=== PATIENT | male | born 1985 | race Caucasian/White ===

== ENCOUNTER 2016-12-12 21:40 | Observation (INO) | payer OTHER ==
[~2016-12-12] VITALS: Ht 182.9 cm; Wt 108.9 kg
--- NOTE | ~2016-12-12 | CR63 ---
[facility] A Service of [facility] RADIOLOGY TEXT RESULTS PATIENT: TAYLOR HAY LOCATION: C2A 240-01 : 83 UNIT #: [id number] AGE: [address]: Prince Linn MD SEX: M ORDER DR: [id number] [facility] [address] [place], [place] [address] [id number] MR#: [id number] Acc #: [id number] NAME: TAYLOR HAY : 1985 SEX: M STUDY DATE/TIME: 12/12/2016 22:41 UNIT: C2A ROOM: 240 STUDY DESCRIPTION: CR Chest 2 View Attending Physician: Prince Linn M.D. Ordering Physician: Sivakumar Stack M.D. Primary Care Physician: Primary Care Physician No MEDICAL IMAGING REPORT This report is preliminary unless electronic signature is present EXAM Two-view chest INDICATION Chest pain today. PROCEDURE Frontal and lateral views of the chest. COMPARISON 11/30/2010. FINDINGS Mild enlargement of the cardiac size is similar to the prior. No dense consolidation, pleural fluid or pneumothorax. IMPRESSION 1. No active process. 2. Stable mild cardiac enlargement. Dictated by... Alex Sibley M.D. THIS IS AN ELECTRONICALLY VERIFIED REPORT Alex Sibley M.D. at 12/17/2016 8:32 AM JADON/judd TD: 12/13/2016 06:10 JOB #: [id number] MEDICAL IMAGING REPORT Page 1 of 1 COPY
--- NOTE | ~2016-12-12 | HP ---
Unit #: [id number] #: [id number] Patient: TAYLOR HAY [id number] [address] [address] [id number] I MR#: [id number] NAME: TAYLOR HAY ROOM: 240 Age: 31 Sex: M Admission Date: 12/12/2016 : 1985 Attending Physician: Prince Linn M.D. Primary Care Physician: No Primary Care Physician HISTORY AND PHYSICAL REASON FOR ADMISSION Acute dysphagia. HISTORY OF PRESENT ILLNESS 31-year-old gentleman with history of esophageal stricture, now presents with acute worsening. He had some cheese steak yesterday and is unable to drink or eat anything since then. No chest pain, no abdominal pain, no fever, no chills. PAST HISTORY History of esophageal stricture. Has not followed through, not taking any medications. MEDICATIONS Medications at home include: Ultram and Flexeril. No active medicines. ALLERGIES None. SOCIAL HISTORY Nonsmoker, nonalcoholic. REVIEW OF SYSTEMS A complete ten point review of systems was done which was unremarkable other than as mentioned above. PHYSICAL EXAMINATION VITAL SIGN: Stable. Temperature 98.2, pulse 85, respirations 14, blood pressure 144/92. HEENT: Pupils equal, reactive. Sclerae anicteric. Oral mucosa moist. NECK: No JVD, no lymphadenopathy. CHEST: Clear to auscultation bilaterally. ABDOMEN: Soft, nontender, nondistended. EXTREMITIES: Without clubbing, cyanosis or edema. NEUROLOGICAL: Intact. SKIN: Warm and dry. DIAGNOSTIC STUDIES LABORATORY: Labs unremarkable. ASSESSMENT AND PLAN Patient with acute on chronic dysphagia, possible meat impaction with steak. Will need an urgent upper endoscopy. Risks and benefits were discussed. The procedure will be carried out soon. Will keep him on IV Unit #: [id number] #: [id number] Patient: TAYLOR HAY fluids as well as PPIs for now. He will be discharged after the procedure. Dictated by Karmen Anderson/ernst TD: 12/13/2016 08:12 JOB #: [id number] HISTORY AND PHYSICAL Page 1 of 1 X Prince Linn MD HISTORY AND PHYSICAL
--- NOTE | ~2016-12-12 | OR ---
Unit #: [id number] #: [id number] Patient: TAYLOR HAY [id number] [address] [address] [id number] I MR#: [id number] NAME: TAYLOR HAY ROOM: 240 Date of Procedure: 12/13/2016 Admission Date: 12/12/2016 Surgeon: Prince Linn M.D. : 1985 Attending Physician: Prince Linn M.D. Primary Care Physician: Primary Care Physician No OPERATIVE REPORT JOB NOTE: CC: PRIMARY CARE PHYSICIAN PROCEDURES PERFORMED Esophagogastroduodenoscopy with foreign body removal. 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 MEDICATIONS Monitored anesthesia. POSTOPERATIVE FINDINGS 1. Large piece of food stuck in the mid esophagus around 30 cm [place], removed using Spider-Net. 2. Severe esophagitis, esophageal stricture about 30 to 35 cm [place]. 3. Normal stomach. 4. Normal duodenum and distal duodenum. PLAN PPI therapy. Repeat upper endoscopy after 6 to 8 weeks of PPI therapy for dilation, biopsy DESCRIPTION OF PROCEDURE The patient was explained of the procedure, risks, and benefits along with the risks and benefits of anesthesia. He was brought to the endoscopy room. General anesthesia was given. The scope was then passed down the mouth into the esophagus. Midesophagus showed . After that, exam was completed. Findings have been described above. Gently, the scope was pulled out. He tolerated it well. No major complications were seen. Dictated by... Karmen Anderson/josé TD: 12/13/2016 11:37 JOB #: [id number] Unit #: [id number] #: [id number] Patient: TAYLOR HAY OPERATIVE REPORT Page 1 of 1 X Prince Linn MD X PROCEDURE OPERATIVE NOTE
--- NOTE | ~2016-12-12 | CR195 ---
[facility] A Service of [facility] RADIOLOGY TEXT RESULTS PATIENT: TAYLOR HAY LOCATION: C2A 240-01 : [birth year] UNIT #: [id number] AGE: [address]: Prince Linn MD SEX: M ORDER DR: [id number] [facility] [address]. [place], [place] [address] [id number] I MR#: [id number] Acc #: [id number] NAME: TAYLOR HAY : 1985 SEX: M STUDY DATE/TIME: 12/12/2016 22:42 UNIT: C2A ROOM: 240 STUDY DESCRIPTION: CR Neck Soft Tissue Attending Physician: Prince Linn M.D. Ordering Physician: Sivakumar Stack M.D. Primary Care Physician: No Primary Care Physician MEDICAL IMAGING REPORT This report is preliminary unless electronic signature is present EXAM Neck soft tissues series. INDICATIONS Neck pain. Difficulty swallowing today. PROCEDURE Frontal and lateral views of the neck utilizing soft tissue technique. COMPARISON None. FINDINGS Prevertebral soft tissues within normal limits. No radiodense foreign body. Cervical vertebral bodies unremarkable. IMPRESSION Negative neck soft tissues series. Dictated by... Alex Sibley M.D. THIS IS AN ELECTRONICALLY VERIFIED REPORT Alex Sibley M.D. at 12/17/2016 8:33 AM JADON/josse TD: 12/13/2016 06:10 JOB #: [id number] MEDICAL IMAGING REPORT Page 1 of 1 COPY
[~2016-12-12 21:40] MED LIST: FLEXERIL10 M1 PO; ULTRAM PO
[2016-12-12 22:53] LABS: BASOPHIL% 0.3 % (0-2.5); EOSINOPHIL# 0.3 X10e3 (0-0.7); EOSINOPHIL% 2.3 % (0.0-7.0); HEMATOCRIT 52.2 % (38.0-50.0); HEMOGLOBIN 16.6 gm/dL (13.0-16.0); LYMPHOCYTE# 2.2 X10e3 (1.0-3.5); LYMPHOCYTE% 15.8 % (17.0-45.0); MEAN CELL VOLUME 87.9 FL (83-96); MEAN CORPUSCULAR HEMOGLOBIN 27.9 PG (28-34); MEAN CORPUSCULAR HGB CONC 31.7 g/dL (30-36); MEAN PLATELET VOLUME 9.7 FL (6.5-11.5); MONOCYTE# 1.3 X10e3 (0-1.0); MONOCYTE% 9.2 % (3.0-12.0); NEUTROPHIL# 10.2 X10e3 (1.5-7.1); NEUTROPHIL% 72.4 % (40-75); PLATELET COUNT 317 X10e3 (140-420); RED BLOOD COUNT 5.94 X10e (3.90-5.60); RED CELL DISTRIBUTION WIDTH 14.7 % (11.0-15.5); WHITE BLOOD COUNT 14.1 X10e3 (4.0-10.5)
[2016-12-12 23:00] LABS: DIFF IND NO
[2016-12-12 23:03] LABS: BUN/CREATININE RATIO 7.69; CALCIUM SERUM 9.2 mg/dL (8.4-10.2); CREATININE SERUM 1.3 mg/dL (0.6-1.4); GLOM FILT RATE Estimated 71.7 mL/min (>60)
[2016-12-13] MEDS ORDERED: PROTONIX PO (09:41)
== END 2016-12-13 11:00 | disposition home or self-care (01) | DRG 395 ==
LOC: CED 21:40 → CEDOF 23:10 → CED 23:17 → CEDOF 23:17 → C2A 12-13 00:25
PROVIDERS: Emergency Medicine
DX: T18.128A Food in esophagus causing other injury, initial encounter (principal); K20.9 Esophagitis, unspecified; K22.2 Esophageal obstruction; Z79.899 Other long term (current) drug therapy
CPT/HCPCS: 36415; 70360; 71020; 80048; 85025; 96361; 96374; 96375; 99285; C9113; G0378; J0330; J1610; J2250; J2405; J3010